=== PATIENT | male | born 1985 | race African-American/Black ===

== ENCOUNTER 2016-10-04 18:50 | Emergency (ER) | payer SELFPAY ==
[~2016-10-04 18:50] MED LIST: NO MEDICATIONS; PHENERGAN25 M1 PO
[2016-10-04 19:18] LABS: INFLUENZA A NEG (NEG); INFLUENZA B NEG (NEG)
== END 2016-10-04 20:08 | disposition home or self-care (01) ==
LOC: SED 18:50
PROVIDERS: Physician Assistant
DX: B34.9 Viral infection, unspecified (principal); I10 Essential (primary) hypertension; F17.210 Nicotine dependence, cigarettes, uncomplicated
CPT/HCPCS: 87651; 87804; 99283